=== PATIENT | female | born 1980 | race Caucasian/White ===

== ENCOUNTER 2019-11-29 15:20 | Emergency (ER) | payer MEDICAID ==
[2019-11-29] MEDS ORDERED: Albuterol 6.7 GM Inhaler INH ONE (16:00)
--- NOTE | 2019-11-29 16:08 | EDM.PDOC ---
ED HPI GENERAL MEDICAL PROBLEM - General Chief Complaint: Respiratory Problem Stated Complaint: COUGH/SOB Time Seen by Provider: 11/29/19 15:36 Source of Information: Reports: Patient, RN Notes Reviewed History Limitations: Reports: No Limitations - History of Present Illness INITIAL COMMENTS - FREE TEXT/NARRATIVE: Patient is a 39-year-old female who presents to the ED for the evaluation of her increased difficulty breathing, and cough. Patient notes for the past 2 days she has had increased cough and dyspnea, she states she is also been having some colored sputum that was green or yellow in nature. She has been using Mucinex and Shea 24-hour allergy medications as she states she does have a history of fall allergies. She states that she lives in [place] but came to [place] to [place] her child, so she can go back to school in [place]. She is not known to be around anyone that is been sick or had sick-like symptoms. She is visibly dyspneic, and notices that she has been more wheezy than normal as well. She states that she has been using her boyfriend's inhaler for management and this has helped however she has run out since she is used at all. She does not have any fevers or chills, nausea or vomiting or diarrhea. She is not been known to have asthma or anything like this, but states that she has notices the wheeze increasing as she is aging with her allergies. She notes that this is been worsened since she is been in [place] which is been a few days. Headache Pain Score (Numeric/FACES): 3 - Related Data Allergies Allergy/AdvReac Type Severity Reaction Status Date / Time No Known Allergies Allergy Verified 11/29/19 15:47 Home Meds: Home Meds Albuterol Sulfate [Albuterol Sulfate Hfa] 8.5 gm IH QID PRN #1 hfa.aer.ad 11/29/19 [Rx] Fexofenadine/Pseudoephedrine [Shea-D 24 Hour Tablet] 1 tab PO DAILY 11/29/19 [History] guaiFENesin [Mucinex] 600 mg PO ASDIRECTED PRN 11/29/19 [History] predniSONE 20 mg PO ASDIRECTED #15 tab 11/29/19 [Rx] Past Medical History Respiratory History: Reports: Other (See Below) Other Respiratory History: seasonal allergies Genitourinary History: Reports: Renal Calculus - Past Surgical History GI Surgical History: Reports: Cholecystectomy Female Surgical History: Reports: Tubal Ligation Social & Family History - Tobacco Use Smoking Status *Q: Current Every Day Smoker Years of Tobacco use: 2 Packs/Tins Daily: 0.5 - Caffeine Use Caffeine Use: Reports: Coffee, Soda - Recreational Drug Use Recreational Drug Use: No ED ROS GENERAL - Review of Systems Review Of Systems: Comprehensive ROS is negative, except as noted in HPI. ED EXAM, GENERAL - Physical Exam Exam: See Below Exam Limited By: No Limitations General Appearance: Alert, WD/WN, Mild Distress (pt is breathing heavy and O2 sats are 95% on RA) Eye Exam: Bilateral Eye: EOMI, Normal Inspection, PERRL Nose: Normal Inspection Throat/Mouth: Normal Inspection, Normal Lips, Normal Teeth, Normal Gums, Normal Oropharynx, Normal Voice, No Airway Compromise Head: Atraumatic, Normocephalic Neck: Normal Inspection Respiratory/Chest: No Accessory Muscle Use, Chest Non-Tender, Respiratory Distress (mild, she is exhibiting deeper than normal tidal breathing.), Decreased Breath Sounds (diffuse bilaterally), Wheezing (diffuse bilaterally, end expiratory). No: Rales, Rhonchi Cardiovascular: Normal Peripheral Pulses, Regular Rate, Rhythm, No Murmur Peripheral Pulses: 2+: Radial (L), Radial (R) Extremities: Normal Inspection, Normal Capillary Refill Neurological: Alert, Oriented, Normal Cognition, No Motor/Sensory Deficits Psychiatric: Normal Affect, Normal Mood Skin Exam: Warm, Dry, Intact, Normal Color, No Rash Course - Vital Signs Last Recorded V/S: Last Vital Signs Temp 95.4 F L 11/29/19 15:41 Pulse 88 11/29/19 15:41 Resp 20 11/29/19 15:41 BP 134/83 11/29/19 15:41 Pulse Ox 95 11/29/19 15:41 - Orders/Labs/Meds Orders: Active Orders 24 hr Category Date Time Status RT Post Treatment Assessment [RC] Click to Edit Care 11/29/19 16:00 Ordered RT Pre-Treatment Assessment [RC] Click to Edit Care 11/29/19 16:00 Ordered CORONAVIRUS COVID-19 PCR PHL Routine Lab 11/29/19 16:01 Received Labs: Laboratory Tests 11/29/19 11/29/19 Range/Units 16:15 16:15 WBC 10.13 H (3.98-10.04) K/mm3 RBC 5.12 (3.98-5.22) M/mm3 Hgb 14.6 (11.2-15.7) gm/dl Hct 42.1 (34.1-44.9) % MCV 82.2 (79.4-94.8) fl MCH 28.5 (25.6-32.2) pg MCHC 34.7 (32.2-35.5) g/dl RDW Std Deviation 38.9 (36.4-46.3) fL Plt Count 319 (182-369) K/mm3 MPV 9.9 (9.4-12.3) fl Neut % (Auto) 63.0 (34.0-71.1) % Lymph % (Auto) 23.0 (19.3-51.7) % [place] % (Auto) 7.5 (4.7-12.5) % Eos % (Auto) 5.9 H (0.7-5.8) Baso % (Auto) 0.3 (0.1-1.2) % Neut # (Auto) 6.38 H (1.56-6.13) K/mm3 Lymph # (Auto) 2.33 (1.18-3.74) K/mm3 [place] # (Auto) 0.76 H (0.24-0.36) K/mm3 Eos # (Auto) 0.60 H (0.04-0.36) K/mm3 Baso # (Auto) 0.03 (0.01-0.08) K/mm3 Manual Slide Review Normal smear Sodium 139 (136-145) mEq/L Potassium 3.8 (3.5-5.1) mEq/L Chloride 103 (98-107) mEq/L Carbon Dioxide 24 (21-32) mEq/L Anion Gap 15.8 H (5-15) BUN 10 (7-18) mg/dL Creatinine 0.8 (0.55-1.02) mg/dL Est Cr Clr Drug Dosing 85.80 mL/min Estimated GFR (MDRD) > 60 (>60) mL/min BUN/Creatinine Ratio 12.5 L (14-18) Glucose 110 H (74-106) mg/dL Calcium 9.0 (8.5-10.1) mg/dL Total Bilirubin 0.5 (0.2-1.0) mg/dL AST 23 (15-37) U/L ALT 40 (14-59) U/L Alkaline Phosphatase 101 (46-116) U/L Total Protein 7.3 (6.4-8.2) g/dl Albumin 3.5 (3.4-5.0) g/dl Globulin 3.8 gm/dL Albumin/Globulin Ratio 0.9 L (1-2) Meds: Medications Discontinued Medications Generic Name Dose Route Start Last Admin Trade Name Freq PRN Reason Stop Dose Admin Albuterol 0 gm 11/29/19 16:00 11/29/19 16:24 Proventil Hfa INH 11/29/19 16:01 2 puff ONETIME ONE Administration - Re-Assessments/Exams Free Text/Narrative Re-Assessment/Exam: 11/29/19 16:07 Patient presents to the ED for evaluation of her ongoing respiratory symptoms. Patient will have a state COVID test, chest x-ray, albuterol inhaler and a CBC and CMP for initial evaluation. She is quite wheezy at this time which would be suggestive of possible reactive airways disease. We will also send her home with prednisone. 11/29/19 16:41 CBC has come back, white blood cells are mildly elevated, but not worrisomely so, there is no discernible left shift. This is more likely an acute stress response. Metabolic panel still pending. We will likely get the patient discharged home with general recommendations. 11/29/19 17:05 Patient's chest x-ray shows no sign of any sort of pneumonia or other consolidative processes. Folic panel is essentially normal. Coronavirus test has been received and is pending. This will be again be the state test, so we will discharge home with general recommendations. Departure - Departure Time of Disposition: 16:42 Disposition: Home, Self-Care 01 Condition: Good Clinical Impression: Reactive airway disease with wheezing Qualifiers: Asthma severity: mild Asthma persistence: intermittent Asthma complication type: with acute exacerbation Qualified Code(s): J45.21 - Mild intermittent asthma with (acute) exacerbation - Discharge Information *PRESCRIPTION DRUG MONITORING PROGRAM REVIEWED*: No *COPY OF PRESCRIPTION DRUG MONITORING REPORT IN PATIENT [place]: No Prescriptions: Albuterol Sulfate [Albuterol Sulfate Hfa] 8.5 gm IH QID PRN #1 hfa.aer.ad PRN Reason: Shortness Of Breath predniSONE 20 mg PO ASDIRECTED #15 tab Instructions: How to Use a Metered Dose Inhaler Referrals: PCP,None [Primary Care Provider] - Forms: ED Department Discharge, ED Return to Work/School Form Additional Instructions: You were seen in the ER today for ongoing and/or worsening respiratory symptoms. Your chest x-ray showed no signs of pneumonia at this time. Your oxygen levels were great at 96% on room air. At this time we did test you for COVID-19. We ask that you self-quarantine until you receive your results from the state. You have been given a work note to reflect this. Swabs are sent from this facility on a daily basis, at 2:30 PM, you should expect up to 3-5 business days for positive or negative results. However you may receive results earlier than this. We are doing our best to call as soon as we get results from the [place] dept. of Health. Please try to increase your oral fluid intake, and eat multiple small meals throughout the day, to keep yourself healthy. You were given an albuterol inhaler, you may use this 1 to 2 puffs every 4 hours while having difficulty breathing, and then decrease your usage as much as possible so you are only using it as needed rather than on an every 4 hour basis. You were also given a dose of prednisone, please take as directed. This [facility] electronically [facility] I would recommend when you get back to [place], that you follow-up with your regular care provider and have them do breathing tests, or PFTs, to evaluate the possibility of asthma or other reactive airways disease. Please return to the ER at any time if symptoms change or worsen. Sepsis Event Note (ED) - Evaluation Sepsis Screening Result: No Definite Risk - Focused Exam Vital Signs: Vital Signs Temp Pulse Resp BP Pulse Ox 11/29/19 15:41 95.4 F L 88 20 134/83 95 - My Orders Last 24 Hours: My Active Orders 11/29/19 16:00 RT Post Treatment Assessment [RC] Click to Edit RT Pre-Treatment Assessment [RC] Click to Edit 11/29/19 16:01 CORONAVIRUS COVID-19 PCR PHL Routine - Assessment/Plan Last 24 Hours: My Active Orders 11/29/19 16:00 RT Post Treatment Assessment [RC] Click to Edit RT Pre-Treatment Assessment [RC] Click to Edit 11/29/19 16:01 CORONAVIRUS COVID-19 PCR [facility] Routine
--- NOTE | 2019-11-29 16:55 | CR ---
Chest: Portable view of the chest was obtained. Comparison: No prior chest imaging is available. Heart size and mediastinum are normal. Lungs are clear with no acute parenchymal change. Bony structures are grossly intact. Impression: 1. Nothing acute is appreciated on portable chest x-ray. Diagnostic code #1 This report was dictated in MDT
== END 2019-11-29 17:20 | disposition home or self-care (01) ==
LOC: JD.ED 15:20
DX: J45.21 Mild intermittent asthma with (acute) exacerbation (principal); F17.210 Nicotine dependence, cigarettes, uncomplicated; Z20.828 Contact with and (suspected) exposure to other viral communicable diseases
CPT/HCPCS: 36415; 71045; 80053; 85025; 87635; 94640; 99285; A9270; 99283; U0002